=== PATIENT | male | born 1980 | race Caucasian/White ===

== ENCOUNTER 2017-03-06 16:10 | Outpatient (CLI) | payer OTHER ==
--- NOTE | 2017-03-08 09:09 | OP Clinic Progress Note ---
REASON FOR VISIT: This 36-year-old male was seen accompanied by his . He felt like he had swallowed a bug about 48 hours ago. He had coughing and hacking. He still feels as if there is something in his throat. He tried to wash and gargle and used Listerine other things and he still feels like there is a foreign body. Over the last several hours right before his visit, he felt like things were ameliorating and getting somewhat improved. He does work around a lot of dirt, dust, and irritants. On examination, he has an extremely long uvula and it is very slightly erythematous. It might have gotten a little bit worse because he has been coughing, hacking, and gagging a lot recently. A flexible fiberoptic laryngoscope was passed through the left nostril. Sitting in the oropharynx, I could see the uvula does touch the back part of the tongue base. That may be part of his symptoms. I could see the vocal cords. There is no evident mass or lesion. There is no evident foreign body. I do not see paralysis or any other significant abnormality of the larynx, hypopharynx, or the supraglottic larynx. There is no gross cervical lymphadenopathy. PLAN: By history, the patient may have inhaled a foreign body. I do not see evidence of it residually. As the patient's symptoms have fairly markedly improved over the last maybe even half a day, I think watchful waiting is more reasonable. He is around a lot of dirt, dust, and irritants and I encouraged using saline nasal spray, which is a good idea for him. Regarding the very long uvula, if it does not seem to clinically be bothering him, I would leave it. Although he does some snoring per his who accompanies him, there is no real clinical evidence of sleep apnea, although he does have a family history of sleep apnea. The patient may return on a p.r.n. basis and has information to do that if he chooses to. cc: MARIANO Cabrera
== END 2017-03-06 16:11 ==
LOC: ENT 16:10
PROVIDERS: ATTEND Otolaryngology
DX: R09.89 Other specified symptoms and signs involving the circulatory and respiratory systems (principal)
CPT/HCPCS: 31575; 99214

== ENCOUNTER 2019-04-26 20:05 | Emergency (ER) | payer OTHER ==
[2019-04-26] MEDS ORDERED: DIPH,PERTUSS(ACELL),TET VAC/PF 0.5 ML DISP.SYRIN IM ONE (21:19)
--- NOTE | 2019-04-26 21:22 | ED Physician Documentation ---
General Adult - HISTORIAN Historian: patient - HPI Stated Complaint: scalp laceration Chief Complaint: General Adult Onset: hours Timing: still present Severity: mild Further Comments: yes (Pt is a 39 yo male with a scalp laceration. 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 No LOC or other injury. Tetanus is not utd.) - ROS CONST: no problems EYES/ENT: none CVS/RESP: none GI/: none MS/SKIN/LYMPH: other (scalp laceration) - PAST HX Past History: none Allergies/Adverse Reactions: Allergies Allergy/AdvReac Type Severity Reaction Status Date / Time No Known Allergies Allergy Verified 04/26/19 21:29 Home Medications: Ambulatory Orders Medication Instructions Recorded NK 04/26/19 - SOCIAL HX Smoking History: chew Alcohol Use: occasionally - FAMILY HX Family History: No - REVIEWED ASSESSMENTS Nursing Assessment Reviewed: Yes Vitals Reviewed: Yes Procedures Wound Location: head Wound Length: 3 cm Wound's Depth, Shape: superficial Wound Explored: clean Betadine Prep?: No (Hibiclens) Wound Debrided: minimal Wound Repaired With: jayne (5 jayne) Progress - Progress Progress: Tdap 0.5 ml IM in ER. Apply topical antibiotic, such as Neosporin, Bacitracin, or Triple Antibiotic to stapled area twice daily for 5 day. Follow up with primary provider for suture removal in 5 to 7 days. ED Results Lab/Radiology - Orders Orders: ED Orders Category Date Time Status Diph,Pertuss(Acell),Tet Vac/Pf [Adacel] Med 04/26/19 21:19 Once 0.5 ml IM .ONCE ONE General Adult Physical Exam - PHYSICAL EXAM GENERAL APPEARANCE: no distress EENT: eye inspection normal NECK: normal inspection, supple RESPIRATORY: no resp distress, chest non-tender, breath sounds normal CVS: reg rate & rhythm, heart sounds normal BACK: normal inspection SKIN: other (superficial scalp laceration, crown of head) EXTREMITIES: non-tender, normal range of motion, no evidence of injury NEURO: oriented X3, motor nml, sensation nml Discharge Clincal Impression: scalp laceration Referrals: Sarah Beth Conner MD [Primary Care Provider] - Condition: Good Disposition: 01 HOME, SELF-CARE Decision to Admit: NO Decision Time: 21:37
[2019-04-26 22:54] VITALS: BP 137/80
== END 2019-04-26 21:34 | disposition home or self-care (01) ==
LOC: ED 20:05
DX: S01.01XA Laceration without foreign body of scalp, initial encounter (principal); W22.8XXA Striking against or struck by other objects, initial encounter
CPT/HCPCS: 90715